=== PATIENT | female | born 1945 | race Caucasian/White ===

== ENCOUNTER 2018-07-23 19:25 | Emergency (ER) | payer MEDICARE ==
[2018-07-23] MEDS ORDERED: MORPHINE SULFATE 4 MG/ML SYRINGE IV STA (20:12)
--- NOTE | 2018-07-23 20:14 | ED ---
Abdominal Pain HPI - General Chief Complaint: Abdominal Pain Stated Complaint: female gu Time Seen by Provider: 07/23/18 19:51 Source: patient Mode of arrival: ambulatory Limitations: no limitations - History of Present Illness Initial Comments: Patient is a 73-year-old female presenting for lower abdominal pain. She says on Wednesday and Wednesday, she started having pink vaginal spotting and then started having significant bleeding which then resolved. She saw her PCP which then had transvaginal ultrasound performed and showed significant amount of uterus and the fluid. She states that the pain is increasing and feels a crampy pressure more so in the rectum within the abdomen and it is intermittent with radiation to the back. She also vomited twice but no diarrhea or fevers or chills. She denies any urinary symptoms. - Related Data Allergies Allergy/AdvReac Type Severity Reaction Status Date / Time prochlorperazine Allergy Anaphylaxis Verified 07/23/18 19:36 [From Compazine] Review of Systems ROS Statement: Those systems with pertinent positive or pertinent negative responses have been documented in the HPI. Constitutional: Negative for chills, fatigue and fever. HENT: Negative for congestion. Respiratory: Negative for chest tightness, shortness of breath and wheezing. Negative for cough Cardiovascular: Negative for chest pain and palpitations. Gastrointestinal: Positive for abdominal pain and nausea/vomiting. Negative for abdominal distention, diarrhea, . Genitourinary: Negative for dysuria. Musculoskeletal: Negative for back pain, neck pain and neck stiffness. Skin: Negative for color change. : Positive for vaginal bleeding Neurological: Negative for dizziness, speech difficulty, weakness and light- headedness. Psychiatric/Behavioral: Negative for agitation and confusion. Negative for anxiety ROS Other: All systems not noted in ROS Statement are negative. Past Medical History Past Medical History: Diabetes Mellitus, Hyperlipidemia History of Any Multi-Drug Resistant Organisms: None Reported Past Surgical History: Tubal Ligation Smoking Status: Never smoker Past Alcohol Use History: Rare Past Drug Use History: None Reported General Exam - General Exam Comments Initial Comments: Constitutional: Pt is oriented to person, place, and time. Pt appears well- developed and well-nourished. No distress. HENT: Head: Normocephalic and atraumatic. Eyes: EOM are normal. Neck: Normal range of motion. Neck supple. Cardiovascular: Normal rate, regular rhythm, S1 normal, S2 normal and normal heart sounds. Exam reveals no gallop and no friction rub. No murmur heard. Pulmonary/Chest: Effort normal and breath sounds normal. No tachypnea and no bradypnea. No respiratory distress. No wheezes or rales noted. Abdominal: Soft. Bowel sounds are normal. Pt exhibits no shifting dullness, no distension, no pulsatile liver, no fluid wave, no abdominal bruit and no ascites. There is no tenderness. There is no rigidity, no rebound, no guarding, no tenderness at McBurney's point and negative Hamlin's sign. Musculoskeletal: Normal range of motion. Neurological: Pt is alert and oriented to person, place, and time. No cranial nerve deficit. Skin: Skin is warm and dry. No rash noted. Pt is not diaphoretic. No erythema. No pallor. Psychiatric: Pt has a normal mood and affect. Pt behavior is normal. Thought content normal. Limitations: no limitations Course Vital Signs 07/23/18 07/23/18 19:33 23:00 Temperature 98 F Pulse Rate 81 78 Respiratory 18 20 Rate Blood Pressure 209/85 179/77 O2 Sat by Pulse 100 97 Oximetry - Reevaluation(s) Reevaluation #1: 07/23/18 21:50 Laboratory studies shows that there is significant leukocytosis of 16 with hemoglobin of 8. Additionally, there is profound wedgelike derangements and that potassium is 6.0 and carbon dioxide is 16. There is also elevation of creatinine of 4.72 and BUN 70. Etiology of this is unclear and CT abdomen is still pending. He has of the potassium elevation, patient will be given D50, IV insulin, calcium gluconate and EKG will be performed. Reevaluation #2: 07/24/18 00:23 CAT scan showed moderate to severe hydronephrosis on both sides. Case is discussed with radiologist and it was described that there is transition points with dilatation of the ureter with a transition point located in the pelvis at the level of the cervix on the left and level of the uterus on the right. There is also a abnormal 3.8 x 3.1 cm soft tissue density extending right laterally to the levator musculature. This was discussed with gynecology and it was felt that because supervisor carding-oncology was not available at this facility, the patient would be better served at a tertiary care facility. Reevaluation #3: 07/24/18 00:46 Case was discussed with transfer team from [facility] and results were discussed with who kindly accepted the transfer. She will need to go my ambulance as she requires cardiac origin secondary to her potassium and continue IV hydration. Medical Decision Making - Medical Decision Making As discussed in the course section of this note, patient [facility] at the request of gynecology services. EKG also showed no significant findings consistent with hyperkalemia but nonetheless, potassium was treated. Extensive discussion was had with the patient and patient initially wanted to go by private car but it was advised that this could not take place as there were too many significant abnormalities and cardiac monitoring. Patient finally relented and agreed to be transported by ambulance. It should also be noted that the patient currently declined a pelvic exam as she stated that this would probably be done at the receiving facility and she did not want to have repeat exams. - Lab Data Result diagrams: 07/23/18 20:07 07/23/18 20:07 Lab Results 07/23/18 07/23/18 07/23/18 Range/Units 20:07 20:07 20:07 WBC 16.0 H (3.8-10.6) k/uL RBC 2.92 L (3.80-5.40) m/uL Hgb 8.0 L (11.4-16.0) gm/dL Hct 24.5 L (34.0-46.0) % MCV 83.9 (80.0-100.0) fL MCH 27.2 (25.0-35.0) pg MCHC 32.5 (31.0-37.0) g/dL RDW 14.4 (11.5-15.5) % Plt Count 388 (150-450) k/uL Neutrophils % 85 % Lymphocytes % 6 % Monocytes % 6 % Eosinophils % 1 % Basophils % 0 % Neutrophils # 13.6 H (1.3-7.7) k/uL Lymphocytes # 1.0 (1.0-4.8) k/uL Monocytes # 1.0 (0-1.0) k/uL Eosinophils # 0.2 (0-0.7) k/uL Basophils # 0.1 (0-0.2) k/uL Sodium 139 (137-145) mmol/L Potassium 6.0 H (3.5-5.1) mmol/L Chloride 106 (98-107) mmol/L Carbon Dioxide 16 L (22-30) mmol/L Anion Gap 17 mmol/L BUN 70 H (7-17) mg/dL Creatinine 4.72 H (0.52-1.04) mg/dL Est GFR (CKD-EPI)AfAm 10 (>60 ml/min/1.73 sqM) Est GFR (CKD-EPI)NonAf 9 (>60 ml/min/1.73 sqM) Glucose 114 H (74-99) mg/dL Calcium 9.3 (8.4-10.2) mg/dL Total Bilirubin 0.3 (0.2-1.3) mg/dL AST 13 L (14-36) U/L ALT 19 (9-52) U/L Alkaline Phosphatase 61 (38-126) U/L Total Protein 7.1 (6.3-8.2) g/dL Albumin 3.6 (3.5-5.0) g/dL Lipase 419 H (23-300) U/L Urine Color Light Yellow Urine Appearance Slightly Cloudy H (Clear) Urine pH 7.0 (5.0-8.0) Ur Specific [place] 1.005 (1.001-1.035) Urine Protein 2+ H (Negative) Urine Glucose (UA) Negative (Negative) Urine Ketones Negative (Negative) Urine Blood Small (Negative) Urine Nitrite Negative (Negative) Urine Bilirubin Negative (Negative) Urine Urobilinogen <2.0 (<2.0) mg/dL Ur Leukocyte Esterase Large (Negative) - EKG Data EKG Comments: EKG shows rate 71 bpm and normal sinus rhythm. IA interval 178. QRS 80, QTC 402. There are no significant ST depressions or elevations. Disposition Clinical Impression: Acute kidney injury, Hyperkalemia, Hydronephrosis, Pelvic mass Disposition: OTHER INSTITUTION NOT DEFINED Condition: Fair Referrals: Kirby Reagan MD [Primary Care Provider] - 1-2 days Time of Disposition: 00:51 - Out of Hospital Transfer - Req. Specs Out of Hospital Transfer - Requested Specifics: Other Emergency Center ([facility])
[2018-07-23 20:22] LABS: Basophils # (A) 0.1 k/uL (0-0.2); Basophils % (A) 0 %; Eosinophils # (A) 0.2 k/uL (0-0.7); Eosinophils % (A) 1 %; HCT 24.5 % (34.0-46.0); Lymphocytes % (A) 6 %; MCH 27.2 pg (25.0-35.0); MCHC 32.5 g/dL (31.0-37.0); MCV 83.9 fL (80.0-100.0); Mean Platelet Volume 7.2; Monocytes % (A) 6 %; Neutrophils # (A) 13.6 k/uL (1.3-7.7); Neutrophils % (A) 85 %; Platelet Count 388 k/uL (150-450); RBC 2.92 m/uL (3.80-5.40); RDW 14.4 % (11.5-15.5)
[2018-07-23 20:34] LABS: Albumin 3.6 g/dL (3.5-5.0); Calcium 9.3 mg/dL (8.4-10.2); Total Bilirubin 0.3 mg/dL (0.2-1.3); Total Protein 7.1 g/dL (6.3-8.2)
[2018-07-23 20:46] LABS: Appearance,Urine Slightly Cloudy (Clear); Blood,Urine Small (Negative); Color,Urine Light Yellow; Glucose,Urine (UA) Negative (Negative); Ketones,Urine Negative (Negative); Protein,Urine 2+ (Negative); Specific Gravity,Urine 1.005 (1.001-1.035)
[2018-07-23 20:47] LABS: Bilirubin,Urine Negative (Negative); Leukocyte Esterase,Urine Large (Negative); Nitrite,Urine Negative (Negative); Urobilinogen,Urine <2.0 mg/dL (<2.0)
[2018-07-23] MEDS ORDERED: INSULIN REGULAR 100 UNIT/ML VIAL IV ONE (21:43)
[2018-07-23] MEDS ORDERED: CALCIUM GLUCONATE 1,000 MG in SODIUM CHLORIDE 0.9% 100 ML IVPB ONE (21:43)
[2018-07-23] MEDS ORDERED: DEXTROSE 50%-WATER 50 ML SYRINGE IVP STA (21:48)
--- NOTE | 2018-07-23 21:59 | CT ---
EXAMINATION TYPE: CT abdomen pelvis wo con DATE OF EXAM: 07/23/2018 COMPARISON: None HISTORY: 73-year-old female abdominal pain CT DLP: 311.50 mGycm. Automated exposure control for dose reduction was used. TECHNIQUE: Contiguous axial scanning of the abdomen and pelvis without IV contrast. Coronal and sagit darien reconstructions performed. FINDINGS: Heart upper limits of normal in size with no pericardial effusion. Coronary vessel calcifications are present. A couple 4 mm nodular densities right middle lobe. One of these is calcified suggesting prior granulo matous disease. No pleural effusion. Circumferential wall thickening of the distal esophagus. Subtle nodular contour of the liver. Noncontrast appearance of the gallbladder, adrenal glands, spleen, and pancreas shows no gross abnorm al body. No dilated small bowel, free fluid, or free air. Moderate stool burden. No pericolonic inflammatory change. No mesenteric or retroperitoneal lymphadenopathy. There is moderate to severe right and moderate left hydronephrosis and hydroureter with a dependent c alculus in the distal right ureter measuring 1.0 cm. This does not appear to be contributing to neura l obstruction. There seems to be a transition point in the pelvis at the level of the uterus on the right and at the level of the cervix on the left. Multiple calcifications are present in the uterus suspected to repr esent a combination of fibroid change and arcuate vessel calcifications. There seems to be some abnor mal soft tissue thickening extending along the right parauterine region to the levator musculature me asuring 3.8 x 3.1 cm, refer to axial image 112. Small focus of air within the uterine cavity. Left ovary is visualized. Right ovary difficult to delineate from other nonopacified soft tissue stru ctures. No abnormal fluid collection seen in the pelvis. Bones: Degenerative changes at the hips and L5-S1. No osseous destructive process. IMPRESSION: 1. Moderate to severe hydronephrosis on both sides. 2. Transition points located in the pelvis at the level of in the cervix on the left and level of th e uterus on the right. In addition, there is some abnormal 3.8 x 3.1 cm soft tissue density extending right laterally to the levator musculature. Additionally, small amount of air within the uterine cav ity. Correlate for any uterine or cervical pathology including possibility of cervical cancer. 3. Subtle contour nodularity of the liver, possible underlying cirrhosis.
[2018-07-23] MEDS ORDERED: SODIUM CHLORIDE 0.9% 500 ML IV ONE (22:26)
[2018-07-23] MEDS ORDERED: SODIUM CHLORIDE 0.9% 1,000 ML IV SCH (22:30)
[2018-07-23] MEDS ORDERED: HYDROmorphone 0.5 MG/0.5 ML SYRINGE IVP STA (22:39)
[2018-07-24 00:54] VITALS: RESP 18
[2018-07-24 01:21] VITALS: BP 169/79; PULSE 79; TEMP 98.2
== END 2018-07-24 01:22 | disposition short-term general hospital (02) ==
LOC: EC 19:25
DX: N13.30 Unspecified hydronephrosis (principal); E87.5 Hyperkalemia; N17.9 Acute kidney failure, unspecified; R19.00 Intra-abdominal and pelvic swelling, mass and lump, unspecified site; R11.10 Vomiting, unspecified; Z88.8 Allergy status to other drugs, medicaments and biological substances
CPT/HCPCS: 36415; 93005; 80053; 83690; 85025; 81003; 74176; 99285; 96365; 96375 ×3; 96361 ×2; J2270; J0610; J1170

== ENCOUNTER → 2018-08-13 | Outpatient (CLI) | payer MEDICARE ==
--- NOTE | 2018-08-15 16:46 | PE ---
Nuclear medicine PET/CT HISTORY: Cervical cancer, subsequent Patient received 9.7 mCi F-18 intravenously in delayed scanning was performed from the skull base to the mid thighs. Localization and attenuation correction CT scan was also performed. Correlation to CT abdomen pelvis 07/23/2018. Neck and chest: No suspicious hypermetabolic uptake. There is no evident cervical, mediastinal, or ax illary, hilar adenopathy. Some uptake noted at the level of fat density posterior to the right atrium shows no corresponding soft tissue mass, fat along the interatrial septum is present, SUV is 4 consi stent with probable lipomatous hypertrophy of the interatrial septum. There are coronary artery calci fications present. Some calcified prevascular nodes suggest old granulomatous disease. No evident aye g mass. Abdomen pelvis: Bilateral nephrostomy tubes are in place, the hydronephrosis has resolved bilaterally , no longer is there hydroureter noted. Multiple bowel show hypermetabolic uptake along the moe pos sibly due to physiologic activity. Indeterminate soft tissue mass is poorly differentiated from patie nt's uterus in the pelvis, shows associated hypermetabolic uptake SUV 10.9. Probable fibroid calcific ations present to the left midline as noted on CT. Additional soft tissue is present anterior to the rectum to the right of midline as measured on patient's CT, SUV is 8.2. No evident pelvic adenopathy. No retroperitoneal adenopathy. Urinary bladder is not seen with certainty. Osseous structures: No suspicious hypermetabolic uptake. Muscular uptake is likely physiologic in the pelvis and hands. IMPRESSION: Findings suggest locally invasive mass within the pelvis. No evident distant metastases. Additional findings above. Consider postradiation changes or physiologic activity in bowel. Interval nephrostomy tube placements.
== END | disposition home or self-care (01) ==
LOC: RADPETMAIN 15:32
PROVIDERS: ATTEND Internal Medicine Hematology & Oncology
DX: C53.8 Malignant neoplasm of overlapping sites of cervix uteri (principal); I25.10 Atherosclerotic heart disease of native coronary artery without angina pectoris; I89.8 Other specified noninfective disorders of lymphatic vessels and lymph nodes; Z93.6 Other artificial openings of urinary tract status
CPT/HCPCS: 78815; A9552

== ENCOUNTER 2018-10-10 01:06 | Inpatient (IN) | payer MEDICARE ==
[2018-10-10] MEDS ORDERED: MORPHINE SULFATE 4 MG/ML SYRINGE IVP STA (01:42)
[2018-10-10] MEDS ORDERED: SODIUM CHLORIDE 0.9% 500 ML 500 ML IV STA (01:47)
[2018-10-10] MEDS ORDERED: NALOXONE 0.4 MG/ML 1 ML VIAL IV PRN (01:52)
--- NOTE | 2018-10-10 02:12 | ED ---
Abdominal Pain HPI - General Chief Complaint: Abdominal Pain Stated Complaint: Abd Pain Hx Ca Time Seen by Provider: 10/10/18 01:26 Source: patient Mode of arrival: ambulatory Limitations: no limitations - History of Present Illness Initial Comments: Jodee is a 73-year-old female with advanced stage IV cervical cancer which was recently treated with chemotherapy and recently treated with radiation due to a hemorrhagic component of the cancer. Patient presents to the emergency Department today with intractable all over body pain. Patient was prescribed I 25 g per hour fentanyl patch which was replaced yesterday as well as Percocet every 4 hours when necessary for pain. She's been taking the Percocet every 4 hours and still has pain. She reports the pain is worse in her pelvis than anywhere else. She has bilateral nephrostomy tubes and is having plenty of urine output. She has been having normal bowel movements and had 1 prior to arrival. Denies any nausea or vomiting. - Related Data Home Medications Medication Instructions Recorded Confirmed Dexamethasone [Decadron] 8 mg PO HS 09/28/18 10/10/18 Dexamethasone [Hexadrol] 4 mg PO DAILY 09/28/18 10/10/18 Gabapentin [Neurontin] 100 mg PO BID 09/28/18 10/10/18 Hydrocodone/Acetaminophen [[place] 1 tab PO Q6HR PRN 09/28/18 10/10/18 5-325] Lovastatin [Mevacor] 20 mg PO HS 09/28/18 10/10/18 Magnesium Oxide [Mag-Ox] 400 mg PO DAILY 09/28/18 10/10/18 Nitrofurantoin Monohyd/M-Cryst 100 mg PO Q12HR 09/28/18 10/10/18 [Macrobid] Ondansetron [Zofran] 4 mg PO Q8HR PRN 09/28/18 10/10/18 metFORMIN HCL 1,000 mg PO BID 09/28/18 10/10/18 Previous Rx's Medication Instructions Recorded oxyCODONE ER [OxyCONTIN] 15 mg PO Q12HR #6 tab.er.12h 10/01/18 oxyCODONE-APAP 5-325MG [Percocet 1 each PO Q4HR PRN #18 tab 10/01/18 5-325 mg] Allergies Allergy/AdvReac Type Severity Reaction Status Date / Time prochlorperazine Allergy Anaphylaxis Verified 09/28/18 22:03 [From Compazine] MARIEETTIA Allergy Anaphylaxis Uncoded 09/28/18 22:26 Review of Systems ROS Statement: Those systems with pertinent positive or pertinent negative responses have been documented in the HPI. ROS Other: All systems not noted in ROS Statement are negative. Past Medical History Past Medical History: Diabetes Mellitus, Hyperlipidemia Additional Past Medical History / Comment(s): Stage IV cervical cancer diagnosed July 2018 - treated with palliative chemo and radiation - completed Sep 2018 History of Any Multi-Drug Resistant Organisms: None Reported Past Surgical History: Tubal Ligation Past Anesthesia/Blood Transfusion Reactions: No Reported Reaction Past Psychological History: No Psychological Hx Reported Smoking Status: Never smoker Past Alcohol Use History: Rare Past Drug Use History: None Reported General Exam - General Exam Comments Initial Comments: Physical Exam GENERAL: Chronically ill-appearing cancer patient HENT: Normocephalic, Atraumatic. EYES: PERRL, EOMI PULMONARY: Unlabored respirations. No audible rales rhonchi or wheezing was noted. CARDIOVASCULAR: Tachycardic, regular ABDOMEN: Mild tenderness to bilateral lower quadrants Nephrostomy tubes and bilateral flanks with dark urine output SKIN: Skin is clear with no lesions or rashes and otherwise unremarkable. Skin is pink and color, does not appear as anemic as previous admission : Normal external genitalia stage II sacral decubitus ulcer NEUROLOGIC: Patient is alert and oriented x3. Moving all extremities spontaneously MUSCULOSKELETAL: Diffuse atrophy PSYCHIATRIC: Normal psychiatric evaluation. Limitations: no limitations Limitations: no limitations Course Vital Signs 10/10/18 10/10/18 10/10/18 01:17 01:56 02:35 Temperature 98.9 F 97.8 F Pulse Rate 115 H 90 84 Respiratory 20 17 18 Rate Blood Pressure 93/57 114/73 113/64 O2 Sat by Pulse 100 99 98 Oximetry Medical Decision Making - Medical Decision Making The patient was seen and evaluated history is obtained from the patient, family , medical record as well as recall from my previous interactions with the patient and signed this patient has stage IV cervical cancer which is been treated with palliative radiation and chemotherapy Patient is on multiple narcotic pain medications but has persistent ane associated with her cancer Patient is tachycardic likely related to the pain, does not appear acutely toxic Labs and x-ray were ordered Morphine was ordered At this time I do feel the patient warrants admission to the hospital, both the patient and the family would like to meet with hospice to discuss pain management and end-of-life care. Patient does have home health care nurse who has requested a palliative care meet with the patient this week however family would like to expedite this meeting and would like to consult hospice rather than palliative care. Admission orders and consult hospice were placed. - Lab Data Result diagrams: 10/10/18 01:44 10/10/18 01:44 Lab Results 10/10/18 10/10/18 Range/Units 01:44 01:44 WBC 10.1 (3.8-10.6) k/uL RBC 3.13 L (3.80-5.40) m/uL Hgb 8.8 L (11.4-16.0) gm/dL Hct 26.9 L (34.0-46.0) % MCV 86.1 (80.0-100.0) fL MCH 28.1 (25.0-35.0) pg MCHC 32.6 (31.0-37.0) g/dL RDW 15.2 (11.5-15.5) % Plt Count 577 H D (150-450) k/uL Neutrophils % 81 % Lymphocytes % 9 % Monocytes % 6 % Eosinophils % 2 % Basophils % 0 % Neutrophils # 8.2 H (1.3-7.7) k/uL Lymphocytes # 0.9 L (1.0-4.8) k/uL Monocytes # 0.6 (0-1.0) k/uL Eosinophils # 0.2 (0-0.7) k/uL Basophils # 0.0 (0-0.2) k/uL Sodium 128 L (137-145) mmol/L Potassium 5.4 H (3.5-5.1) mmol/L Chloride 94 L (98-107) mmol/L Carbon Dioxide 20 L (22-30) mmol/L Anion Gap 14 mmol/L BUN 31 H (7-17) mg/dL Creatinine 0.78 (0.52-1.04) mg/dL Est GFR (CKD-EPI)AfAm 88 (>60 ml/min/1.73 sqM) Est GFR (CKD-EPI)NonAf 77 (>60 ml/min/1.73 sqM) Glucose 235 H (74-99) mg/dL Calcium 9.0 (8.4-10.2) mg/dL Total Bilirubin 0.4 (0.2-1.3) mg/dL AST 25 (14-36) U/L ALT 47 (9-52) U/L Alkaline Phosphatase 154 H (38-126) U/L Total Protein 6.0 L (6.3-8.2) g/dL Albumin 3.0 L (3.5-5.0) g/dL Lipase 267 (23-300) U/L Disposition Clinical Impression: Pain, cancer Disposition: ADMITTED IP TO THIS HOSP Condition: Fair
[2018-10-10 02:13] LABS: Basophils % (A) 0 %; Eosinophils # (A) 0.2 k/uL (0-0.7); Eosinophils % (A) 2 %; HCT 26.9 % (34.0-46.0); HGB 8.8 gm/dL (11.4-16.0); Lymphocytes # (A) 0.9 k/uL (1.0-4.8); Lymphocytes % (A) 9 %; MCH 28.1 pg (25.0-35.0); MCHC 32.6 g/dL (31.0-37.0); MCV 86.1 fL (80.0-100.0); Mean Platelet Volume 7.3; Monocytes # (A) 0.6 k/uL (0-1.0); Monocytes % (A) 6 %; Neutrophils # (A) 8.2 k/uL (1.3-7.7); Neutrophils % (A) 81 %; RBC 3.13 m/uL (3.80-5.40); RDW 15.2 % (11.5-15.5); WBC 10.1 k/uL (3.8-10.6)
[2018-10-10 02:16] LABS: Platelet Count 577 k/uL (150-450)
--- NOTE | 2018-10-10 02:19 | XR ---
EXAMINATION TYPE: XR KUB DATE OF EXAM: 10/10/2018 COMPARISON: NONE HISTORY: Abdominal pain TECHNIQUE: 2 views supine FINDINGS: There is no sign of intestinal obstruction or pneumoperitoneum. There are bilateral pigtail nephrostomy tubes noted. Fecal pattern is normal. Lung bases are clear. There are spondylotic change s in the lumbar spine. I see no definite calcifications over the kidneys. IMPRESSION: Nonacute abdomen.
[2018-10-10 02:29] LABS: Potassium 5.4 mmol/L (3.5-5.1); Total Bilirubin 0.4 mg/dL (0.2-1.3)
[2018-10-10 03:36] VITALS: RESP 16
[2018-10-10] MEDS: HYDROmorphone 1 MG/ML 1 ML SYRINGE IVP PRN ×4 (04:20→14:48)
[2018-10-10 07:42] LABS: Glucose,Whole Blood 161 mg/dL (75-99)
[2018-10-10 07:47] VITALS: BP 97/54; PULSE 84; TEMP 97.8
[2018-10-10] MEDS: INSULIN ASPART 100 UNIT/ML 1 ML 10 ML VIAL SQ SCH ×2 (07:58→12:32)
[2018-10-10] MEDS ORDERED: MORPHINE SULFATE ER 15 MG TABLET PO SCH ×2 (08:00→20:00)
--- NOTE | 2018-10-10 11:29 | P.HPIM ---
History of Present Illness H&P Date: 10/10/18 Chief Complaint: Abdominal pain with history of cervical cancer 73-year-old female with advanced stage IV cervical cancer which was recently treated with chemotherapy and recently treated with radiation due to a hemorrhagic component of the cancer. Patient presents to the emergency Department today with intractable all over body pain. Patient was prescribed I 25 g per hour fentanyl patch which was replaced yesterday as well as Percocet every 4 hours when necessary for pain. She's been taking the Percocet every 4 hours and still has pain. She reports the pain is worse in her pelvis than anywhere else. She has bilateral nephrostomy tubes and is having plenty of urine output. She has been having normal bowel movements and had 1 prior to arrival. Denies any nausea or vomiting. Review of Systems Constitutional: Denies chills, Denies fever Eyes: denies blurred vision Ears, nose, mouth and throat: Reports headache, Denies epistaxis Cardiovascular: Denies chest pain, Denies shortness of breath Respiratory: Denies congestion, Denies cough Gastrointestinal: Reports abdominal pain, Denies diarrhea, Denies nausea, Denies vomiting Genitourinary: Denies dysuria, Denies flank pain, Denies hematuria Musculoskeletal: Reports low back pain, Reports muscle weakness, Reports myalgias Integumentary: Denies darkening of skin, Denies rash, Denies unusual bruising Neurological: Denies visual changes Past Medical History Past Medical History: Diabetes Mellitus, Hyperlipidemia Additional Past Medical History / Comment(s): Stage IV cervical cancer diagnosed July 2018 - treated with palliative chemo and radiation - completed Sep 2018 History of Any Multi-Drug Resistant Organisms: None Reported Past Surgical History: Tubal Ligation Additional Past Surgical History / Comment(s): Nephrostomy tubes Past Anesthesia/Blood Transfusion Reactions: No Reported Reaction Past Psychological History: No Psychological Hx Reported Smoking Status: Never smoker Past Alcohol Use History: Rare Past Drug Use History: None Reported - Past Family History Mother Family Medical History: Cancer Additional Family Medical History / Comment(s): breast Ca Father Family Medical History: Myocardial Infarction ([place]) Medications and Allergies Home Medications Medication Instructions Recorded Confirmed Type Gabapentin [Neurontin] 100 mg PO TID 09/28/18 10/10/18 History Magnesium Oxide [Mag-Ox] 400 mg PO DAILY 09/28/18 10/10/18 History Ondansetron [Zofran] 4 mg PO Q8HR PRN 09/28/18 10/10/18 History metFORMIN HCL 1,000 mg PO BID 09/28/18 10/10/18 History Loperamide HCl [Imodium A-D] 2 mg PO Q4H PRN 10/10/18 10/10/18 History Omeprazole 20 mg PO BID 10/10/18 10/10/18 History fentaNYL 25MCG/HR PATCH [Duragesic 25 mcg TRANSDERM Q72H 10/10/18 10/10/18 History 25MCG/HR] oxyCODONE-APAP 5-325MG [Percocet 1 tab PO Q4HR PRN 10/10/18 10/10/18 History 5-325 mg] Allergies Allergy/AdvReac Type Severity Reaction Status Date / Time prochlorperazine Allergy Anaphylaxis Verified 10/10/18 08:04 [From Compazine] POINTSETTIA Allergy Anaphylaxis Uncoded 09/28/18 22:26 Physical Exam Vitals: Vital Signs Temp Pulse Pulse Resp BP BP Pulse Ox 10/10/18 07:00 97.8 F 84 16 97/54 95 10/10/18 03:35 96.9 F L 90 16 112/56 100 10/10/18 02:35 97.8 F 84 18 113/64 98 10/10/18 01:56 90 17 114/73 99 10/10/18 01:17 98.9 F 115 H 20 93/57 100 Intake and Output 10/09/18 10/10/18 10/10/18 22:59 06:59 14:59 Output Total 240 Balance -240 Output: Drainage 240 Left Back 20 Right Back 220 Other: # Voids 0 # Bowel Movements 1 Weight 53.524 kg General appearance: Chronically ill appearing patient Eyes: Present: anicteric sclerae, EOMI, PERRLA, normal appearance Neck: Present: normal ROM. Absent: lymphadenopathy, rigidity, thyromegaly Carotids: negative: bruit present Thyroid: bilateral: normal size, negative: enlarged, nodule Respiratory: bilateral: CTA, negative: rales, rhonchi, wheezing Cardiovascular ;Rhythm: regular; tachycardic; normal: S1, S2 General gastrointestinal: Mild to moderate tenderness in bilateral lower quadrants ; nephrostomy tubes bilateral flanks and dark urine output Genitourinary Comment(s): Nephrostomy tubes both flanks with dark urine output Integumentary: Present: normal turgor. Absent: jaundiced, rash, ulcer Neurologic: Present: CNII-XII intact. Absent: focal deficits Musculoskeletal: Present: gait normal, strength equal bilaterally Psychiatric: Present: A&O x's 3, appropriate affect, intact judgment & insight Results CBC & Chem 7: 10/10/18 01:44 10/10/18 01:44 Labs: Abnormal Lab Results - Last 24 Hours (Table) 10/10/18 10/10/18 10/10/18 Range/Units 01:44 01:44 07:38 RBC 3.13 L (3.80-5.40) m/uL Hgb 8.8 L (11.4-16.0) gm/dL Hct 26.9 L (34.0-46.0) % Plt Count 577 H D (150-450) k/uL Neutrophils # 8.2 H (1.3-7.7) k/uL Lymphocytes # 0.9 L (1.0-4.8) k/uL Sodium 128 L (137-145) mmol/L Potassium 5.4 H (3.5-5.1) mmol/L Chloride 94 L (98-107) mmol/L Carbon Dioxide 20 L (22-30) mmol/L BUN 31 H (7-17) mg/dL Glucose 235 H (74-99) mg/dL POC Glucose (mg/dL) 161 H (75-99) mg/dL Alkaline Phosphatase 154 H (38-126) U/L Total Protein 6.0 L (6.3-8.2) g/dL Albumin 3.0 L (3.5-5.0) g/dL Thrombosis Risk Factor Assmnt - Choose All That Apply Any of the Below Risk Factors Present?: No Other Risk Factors: Yes Each Risk Factor Represents 2 Points: Age 61-74 years Other congenital or acquired thrombophilia - If yes, enter type in comment: No Thrombosis Risk Factor Assessment Total Risk Factor Score: 2 Thrombosis Risk Factor Assessment Level: Low Risk Assessment and Plan Assessment: 1. Intractable abdominal pain - Patient is started on Dilaudid 0.5 mg every 3 hours when necessary for severe pain - We will continue with home dose of morphine sulfate extended-release 15 mg every 12 hours - Hospice consult for pain and symptom management 2. Stage IV cervical cancer - Treated with chemotherapy and palliative radiation therapy - Hospice consult to discuss pain management and end-of-life care 3. Tachycardia; possibly pain induced; resolved 4. Hyponatremia; patient received a bolus of normal saline in the ED - No further blood work is done for possible hospice admission 5. Hyperkalemia; mild; possibly secondary to AK I - No treatment given secondary to family and patient wishes for hospice care 6. Mild renal insufficiency; as above 7. Hyperglycemia - Patient remains on Accu-Cheks every before meals and at bedtime with insulin sliding scale 8. Anemia; possibly chronic CODE STATUS; DO NOT RESUSCITATE
[2018-10-10 12:02] LABS: Glucose,Whole Blood 113 mg/dL (75-99)
[2018-10-10 19:40] LABS: Hemoglobin A1C 6.4 % (4.0-6.0)
--- NOTE | 2018-10-10 21:49 | P.CONS ---
History of Present Illness - Reason for Consult Consult date: 10/10/18 intractable cancer related pain - History of Present Illness Mrs. Huff is a 73 yr old female pt of Dr. Lott who had Cervical cancer 39 years ago, treated by Dr. Rosales with external beam radiation therapy and caesium 137 implant brachytherapy. She did well until earlier this year when she developed vaginal bleeding. She was seen at 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 Was deemed not found to be a surgical candidate, CT Scan revealed pelvic mass. She started palliative chemotherapy in June and has completed 3 cycles, last cisplatinum/Taxol/Avastin on 09/26, her Hgb was 8.5, her baseline has been between 8.5-9.5. Pt contacted office with c/o persistent and progressive vaginal bleeding, at times "pouring out", on 09/29/18, and was admitted. She was stabilised with blood transfusion, with cessation of bleeding. Avastin was held. She was discharged on Fentanyl and Percocet prn. She had pallaitive RT as an outpt. The pt came with increasing pain in the suprapubic area. She reported her pain regimen was not effective, and her pain had become intractable. She denied any obvious bleeding/f/c/n/v. Review of Systems Constitutional: Reports chronic pain, Reports poor appetite, Reports weakness Eyes: denies blurred vision, denies pain Ears: deny: decreased hearing, ear discharge, earache, tinnitus Ears, nose, mouth and throat: Denies headache, Denies sore throat Cardiovascular: Reports dyspnea on exertion Respiratory: Denies cough Gastrointestinal: Reports abdominal pain, Reports diarrhea Genitourinary: Reports as per HPI, Reports abnormal vaginal bleeding, Reports pelvic pain Menstruation: Reports postmenopausal Musculoskeletal: Reports muscle weakness Integumentary: Denies pruritus, Denies rash Neurological: Reports weakness, Denies numbness Psychiatric: Denies anxiety, Denies depression Endocrine: Reports fatigue Hematologic/Lymphatic: Reports as per HPI Past Medical History Past Medical History: Diabetes Mellitus, Hyperlipidemia Additional Past Medical History / Comment(s): Stage IV cervical cancer diagnosed July 2018 - treated with palliative chemo and radiation - completed Sep 2018 History of Any Multi-Drug Resistant Organisms: None Reported Past Surgical History: Tubal Ligation Additional Past Surgical History / Comment(s): Nephrostomy tubes Past Anesthesia/Blood Transfusion Reactions: No Reported Reaction Past Psychological History: No Psychological Hx Reported Smoking Status: Never smoker Past Alcohol Use History: Rare Past Drug Use History: None Reported - Past Family History Mother Family Medical History: Cancer Additional Family Medical History / Comment(s): breast Ca Father Family Medical History: Myocardial Infarction ([place]) Medications and Allergies Home Medications Medication Instructions Recorded Confirmed Type Gabapentin [Neurontin] 100 mg PO TID 09/28/18 10/10/18 History Magnesium Oxide [Mag-Ox] 400 mg PO DAILY 09/28/18 10/10/18 History Ondansetron [Zofran] 4 mg PO Q8HR PRN 09/28/18 10/10/18 History metFORMIN HCL 1,000 mg PO BID 09/28/18 10/10/18 History Loperamide HCl [Imodium A-D] 2 mg PO Q4H PRN 10/10/18 10/10/18 History Morphine Sulfate ER [Ms Contin] 15 mg PO Q12H #7 tablet 10/10/18 Rx Omeprazole 20 mg PO BID 10/10/18 10/10/18 History fentaNYL 25MCG/HR PATCH [Duragesic 25 mcg TRANSDERM Q72H 10/10/18 10/10/18 History 25MCG/HR] Allergies Allergy/AdvReac Type Severity Reaction Status Date / Time prochlorperazine Allergy Anaphylaxis Verified 10/10/18 08:04 [From Compazine] POINTSETTIA Allergy Anaphylaxis Uncoded 09/28/18 22:26 Physical Exam Vitals: Vital Signs Temp Pulse Pulse Resp BP BP Pulse Ox 10/10/18 07:00 97.8 F 84 16 97/54 95 10/10/18 03:35 96.9 F L 90 16 112/56 100 10/10/18 02:35 97.8 F 84 18 113/64 98 10/10/18 01:56 90 17 114/73 99 10/10/18 01:17 98.9 F 115 H 20 93/57 100 Intake and Output 10/10/18 10/10/18 10/10/18 06:59 14:59 22:59 Output Total 240 Balance -240 Output: Drainage 240 Left Back 20 Right Back 220 Other: # Voids 0 2 # Bowel Movements 1 2 Weight 53.524 kg - Constitutional General appearance: no acute distress - EENT Eyes: EOMI, PERRLA ENT: hearing grossly normal, normal oropharynx - Neck Neck: no lymphadenopathy Thyroid: bilateral: normal size - Respiratory Respiratory: bilateral: CTA - Cardiovascular Rhythm: regular Heart sounds: normal: S1, S2 - Gastrointestinal General gastrointestinal: normal bowel sounds, soft Localized gastrointestinal: tender: suprabubic (mild) - Integumentary Integumentary: normal - Neurologic Neurologic: CNII-XII intact - Musculoskeletal Musculoskeletal: generalized weakness, strength equal bilaterally - Psychiatric Psychiatric: A&O x's 3, appropriate affect, intact judgment & insight Results CBC & Chem 7: 10/10/18 01:44 10/10/18 01:44 Labs: Abnormal Lab Results - Last 24 Hours (Table) 10/10/18 10/10/18 10/10/18 Range/Units 01:44 01:44 01:44 RBC 3.13 L (3.80-5.40) m/uL Hgb 8.8 L (11.4-16.0) gm/dL Hct 26.9 L (34.0-46.0) % Plt Count 577 H D (150-450) k/uL Neutrophils # 8.2 H (1.3-7.7) k/uL Lymphocytes # 0.9 L (1.0-4.8) k/uL Sodium 128 L (137-145) mmol/L Potassium 5.4 H (3.5-5.1) mmol/L Chloride 94 L (98-107) mmol/L Carbon Dioxide 20 L (22-30) mmol/L BUN 31 H (7-17) mg/dL Glucose 235 H (74-99) mg/dL POC Glucose (mg/dL) (75-99) mg/dL Hemoglobin A1c 6.4 H (4.0-6.0) % Alkaline Phosphatase 154 H (38-126) U/L Total Protein 6.0 L (6.3-8.2) g/dL Albumin 3.0 L (3.5-5.0) g/dL 10/10/18 10/10/18 Range/Units 07:38 12:01 RBC (3.80-5.40) m/uL Hgb (11.4-16.0) gm/dL Hct (34.0-46.0) % Plt Count (150-450) k/uL Neutrophils # (1.3-7.7) k/uL Lymphocytes # (1.0-4.8) k/uL Sodium (137-145) mmol/L Potassium (3.5-5.1) mmol/L Chloride (98-107) mmol/L Carbon Dioxide (22-30) mmol/L BUN (7-17) mg/dL Glucose (74-99) mg/dL POC Glucose (mg/dL) 161 H 113 H (75-99) mg/dL Hemoglobin A1c (4.0-6.0) % Alkaline Phosphatase (38-126) U/L Total Protein (6.3-8.2) g/dL Albumin (3.5-5.0) g/dL Abdominal x-ray: report reviewed Assessment and Plan (1) Pain, cancer Narrative/Plan: The pt is having intractable cancer related pain, likely due to progression. This is not controlled with her current regimen. She Fentanyl will be be stopped. She has been started on MS Contin. She is currently on IV Dilaudid. Recommend switching to PO Roxanol for breakthrough on discharge Status: Acute Code(s): G89.3 - NEOPLASM RELATED PAIN (ACUTE) (CHRONIC) SNOMED Code(s): 487663727 (2) Cervical cancer Narrative/Plan: The pt has progressive disease and was to see Dr Lott in the office tomorrow to discuss future treatment options. She and her family have decided to forgo active treatment and instead want comfort care. Given limited treatment options this is reasonable. Hospice consult initiated. Status: Acute Code(s): C53.9 - MALIGNANT NEOPLASM OF CERVIX UTERI, UNSPECIFIED SNOMED Code(s): 247491058
== END 2018-10-10 15:02 | disposition hospice, home (50) | DRG 948 ==
LOC: EC 01:06 → 4MS4W 02:13
PROVIDERS: ADMIT Hospitalist; ATTEND Hospitalist
DX: G89.3 Neoplasm related pain (acute) (chronic) (principal); E87.1 Hypo-osmolality and hyponatremia; N13.30 Unspecified hydronephrosis; L89.152 Pressure ulcer of sacral region, stage 2; E87.5 Hyperkalemia; E11.65 Type 2 diabetes mellitus with hyperglycemia; D64.9 Anemia, unspecified; C53.9 Malignant neoplasm of cervix uteri, unspecified; Z66 Do not resuscitate; Z93.6 Other artificial openings of urinary tract status; Z51.5 Encounter for palliative care; E78.5 Hyperlipidemia, unspecified; Z79.84 Long term (current) use of oral hypoglycemic drugs; Z79.891 Long term (current) use of opiate analgesic; Z79.899 Other long term (current) drug therapy; Z80.3 Family history of malignant neoplasm of breast; Z92.3 Personal history of irradiation; Z92.21 Personal history of antineoplastic chemotherapy; Z82.49 Family history of ischemic heart disease and other diseases of the circulatory system; Z88.8 Allergy status to other drugs, medicaments and biological substances; Z91.048 Other nonmedicinal substance allergy status
CPT/HCPCS: 36415; 74018; 80053; 83036; 83690; 85025; 96361; 96374; 99285